=== PATIENT | male | born 1990 | race Caucasian/White ===

== ENCOUNTER 2018-01-08 22:47 | Emergency (ER) | payer MEDICAID ==
[~2018-01-08] VITALS: Ht 170.2 cm; Wt 72.7 kg
[2018-01-08] MEDS ORDERED: KETOROLAC TROMETHAMINE 30 MG/ML VIAL IM ONE (23:15)
[2018-01-08] MEDS ORDERED: METOCLOPRAMIDE HCL 5 MG/ML 2 ML VIAL IM ONE (23:15)
[2018-01-08] MEDS ORDERED: DiphenhydrAMINE HCL 50 MG/ML VIAL IM ONE (23:15)
[2018-01-09 00:22] VITALS: BP 118/64
== END 2018-01-09 00:25 | disposition home or self-care (01) ==
LOC: EMS 22:48
DX: K05.10 Chronic gingivitis, plaque induced (principal); R22.0 Localized swelling, mass and lump, head
CPT/HCPCS: 96372; 99284; J1200; J1885; J2765

== ENCOUNTER 2020-11-16 12:18 | Emergency (ER) | payer MEDICAID ==
[~2020-11-16] VITALS: Ht 172.7 cm; Wt 65.9 kg
[2020-11-16 12:23] VITALS: BP 155/110
== END 2020-11-16 15:00 | disposition left against medical advice (07) ==
LOC: EMS 12:23
DX: I10 Essential (primary) hypertension (principal)
CPT/HCPCS: 93005; 99283

== ENCOUNTER 2021-08-21 02:30 | Emergency (ER) | payer MEDICAID ==
[~2021-08-21] VITALS: Ht 172.7 cm; Wt 72.7 kg
[2021-08-21 02:48] VITALS: BP 156/93
[2021-08-21 03:00] LABS: BASOPHILS % (AUTO) 0.5 % (0.0-2.0); EOSINOPHILS % (AUTO) 0.1 % (1.0-6.0); HEMATOCRIT 43.7 % (41-53); HEMOGLOBIN 14.8 g/dL (13.5-17.5); LYMPHOCYTES # (AUTO) 1.2 K/uL (1.0-4.8); LYMPHOCYTES % (AUTO) 7.5 % (22.0-44.0); MEAN CORPUSCULAR HEMOGLOBIN 30.2 pg (26.0-34.0); MEAN CORPUSCULAR HGB CONC 33.9 G/dL (31.0-37.0); MEAN CORPUSCULAR VOLUME 89 fL (80-100); MONOCYTES # (AUTO) 0.6 K/uL (0.1-1.0); PLATELET COUNT (AUTO) 390 K/uL (150-450); RED BLOOD CELL COUNT(AUTO) 4.92 MIL/uL (4.50-5.90); RED CELL DISTRIBUTION WIDTH 14.2 % (11.5-14.5)
[2021-08-21 03:04] LABS: NEUTROPHILS % (AUTO) 87.9 % (40.0-70.0)
[2021-08-21 03:07] LABS: CALCIUM, TOTAL 9.3 mg/dL (8.8-10.5); CREATININE 1.48 mg/dL (0.60-1.30); POTASSIUM 3.3 mmol/L (3.5-5.1)
[2021-08-21 03:13] LABS: ALBUMIN 4.3 g/dL (3.4-5.0); BILIRUBIN,TOTAL 0.4 mg/dL (0.1-1.0); TOTAL PROTEIN, SERUM 8.7 g/dL (6.4-8.2)
== END 2021-08-21 03:59 ==
LOC: EMS 02:31
DX: Z02.89 Encounter for other administrative examinations (principal)
CPT/HCPCS: 71045; 80053; 85025; 99284; 36415-L1; 36415-TC

== ENCOUNTER 2021-09-15 14:21 | Inpatient (IN) | payer MEDICAID ==
[~2021-09-15] VITALS: Ht 172.7 cm; Wt 73.8 kg
[2021-09-15 15:18] LABS: BASOPHILS % (AUTO) 1.2 % (0.0-2.0); EOSINOPHILS % (AUTO) 5.5 % (1.0-6.0); HEMATOCRIT 40.5 % (41-53); HEMOGLOBIN 13.7 g/dL (13.5-17.5); LYMPHOCYTES # (AUTO) 1.9 K/uL (1.0-4.8); LYMPHOCYTES % (AUTO) 30.6 % (22.0-44.0); MEAN CORPUSCULAR HEMOGLOBIN 30.5 pg (26.0-34.0); MEAN CORPUSCULAR HGB CONC 33.8 G/dL (31.0-37.0); MEAN CORPUSCULAR VOLUME 90 fL (80-100); MONOCYTES # (AUTO) 0.6 K/uL (0.1-1.0); MONOCYTES % (AUTO) 9.7 % (2.0-9.0); NEUTROPHILS # (AUTO) 3.2 K/uL (1.8-7.7); PLATELET COUNT (AUTO) 302 K/uL (150-450); RED BLOOD CELL COUNT(AUTO) 4.48 MIL/uL (4.50-5.90); RED CELL DISTRIBUTION WIDTH 14.2 % (11.5-14.5)
[2021-09-15 15:51] LABS: ANION GAP 6 mmol/L (8-16); CALCIUM, TOTAL 8.8 mg/dL (8.8-10.5); CARBON DIOXIDE 29 mmol/L (22-29); CHLORIDE 104 mmol/L (98-107); CREATININE 0.97 mg/dL (0.60-1.30); GLOMERULAR FILTR. RATE CALC > 60 mL/min (>60); GLUCOSE,RANDOM 85 mg/dL (70-110); POTASSIUM 3.7 mmol/L (3.5-5.1); SODIUM SERUM 139 mmol/L (136-145); UREA NITROGEN, BLOOD 15 mg/dL (7-18)
[2021-09-15 15:57] LABS: ALANINE AMINOTRANSFERASE 29 U/L (12-78); ALBUMIN 3.9 g/dL (3.4-5.0); ALKALINE PHOSPHATASE 63 U/L (46-116); ASPARTATE AMINOTRANSFERASE 19 U/L (15-37); BILIRUBIN,TOTAL 0.4 mg/dL (0.1-1.0); TOTAL PROTEIN, SERUM 7.5 g/dL (6.4-8.2)
[2021-09-15 16:20] LABS: COVID AG,FIA SOURCE NASOPHARYNGEAL
[2021-09-15] MEDS ORDERED: ZOLPIDEM TARTRATE 10 MG TABLET PO PRN (18:30)
[2021-09-16 08:34] VITALS: BP 118/75
[2021-09-16] MEDS ORDERED: NICOTINE 14 MG/24 HOUR PATCH TD PRN (10:30)
[2021-09-16] MEDS ORDERED: MAGNESIUM HYDROXIDE SUSPENSION 30 ML UDCUP PO PRN (10:30)
[2021-09-16] MEDS ORDERED: GuaiFENesin/D-METHORPHAN [SUGAR-FREE] 200-20MG/10 ML SYRUP UDCUP PO PRN (10:30)
[2021-09-16] MEDS ORDERED: ONDANSETRON HCL 4 MG TABLET PO PRN (10:30)
[2021-09-16] MEDS ORDERED: DOCUSATE SODIUM 100 MG CAPSULE PO PRN (10:30)
[2021-09-16] MEDS ORDERED: LOPERAMIDE HCL 2 MG CAPSULE PO PRN (10:30)
[2021-09-16] MEDS ORDERED: CloNIDine HCL 0.1 MG TABLET PO PRN (10:30)
[2021-09-16] MEDS ORDERED: IBUPROFEN 400 MG TABLET PO PRN (10:30)
[2021-09-16] MEDS ORDERED: PETROLATUM,WHITE 28 GM JELLY TP PRN (10:30)
[2021-09-16] MEDS ORDERED: ACETAMINOPHEN 325 MG TABLET PO PRN (10:30)
[2021-09-16] MEDS ORDERED: ALBUTEROL SULFATE HFA 90 MCG/PUFF 8 GM INHALER IH PRN (10:30)
[2021-09-16] MEDS ORDERED: MAG HYDROX/AL HYDROX/SIMETH ES 30 ML SUSPENSION UDCUP PO PRN (10:30)
[2021-09-16 16:12] VITALS: BP 118/77
[2021-09-16] MEDS: ARIPiprazole 10 MG TABLET PO SCH (20:30)
[2021-09-17 08:21] VITALS: BP 122/86
[2021-09-17 17:05] VITALS: BP 108/60
[2021-09-17] MEDS: ARIPiprazole 10 MG TABLET PO SCH (20:22)
[2021-09-18 08:00] VITALS: BP 126/80
[2021-09-18 16:00] VITALS: BP 104/61
[2021-09-18] MEDS: ARIPiprazole 10 MG TABLET PO SCH (20:31)
[2021-09-19 08:20] VITALS: BP 126/79
[2021-09-19] MEDS: HALOPERIDOL 5 MG TABLET PO PRN (15:59)
[2021-09-19] MEDS: LORazepam 2 MG TABLET PO PRN (15:59)
[2021-09-19 17:39] VITALS: BP 110/70
[2021-09-19] MEDS: ARIPiprazole 10 MG TABLET PO SCH (20:37)
[2021-09-20 08:30] VITALS: BP 121/74
[2021-09-20 16:21] VITALS: BP 102/60
[2021-09-20] MEDS: ARIPiprazole 10 MG TABLET PO SCH (20:30)
[2021-09-21 08:21] VITALS: BP 144/65
[2021-09-21 16:48] VITALS: BP 113/66
[2021-09-21] MEDS: ARIPiprazole 10 MG TABLET PO SCH (21:00)
[2021-09-22 06:23] LABS: COVID AG,FIA SOURCE NASAL SWAB
[2021-09-22 08:35] VITALS: BP 139/97
[2021-09-22 16:04] VITALS: BP 123/80
[2021-09-22] MEDS: ARIPiprazole 10 MG TABLET PO SCH (21:00)
[2021-09-23 09:39] VITALS: BP 143/83
[2021-09-23 16:09] VITALS: BP 96/67
[2021-09-23] MEDS: ARIPiprazole 10 MG TABLET PO SCH (20:14)
[2021-09-24] MEDS: HALOPERIDOL 5 MG TABLET PO PRN (14:58)
[2021-09-24] MEDS: LORazepam 2 MG TABLET PO PRN (14:58)
[2021-09-24 16:13] VITALS: BP 99/68
[2021-09-24] MEDS: ARIPiprazole 10 MG TABLET PO SCH (20:39)
[2021-09-25 08:13] VITALS: BP 102/67
[2021-09-25 10:02] LABS: COVID AG,FIA SOURCE NASOPHARYNGEAL
[2021-09-25] MEDS: HALOPERIDOL 5 MG TABLET PO PRN (15:13)
[2021-09-25] MEDS: LORazepam 2 MG TABLET PO PRN (15:13)
[2021-09-25 16:29] VITALS: BP 115/62
[2021-09-25] MEDS: ARIPiprazole 10 MG TABLET PO SCH (20:44)
[2021-09-26 08:20] VITALS: BP 119/74
[2021-09-26] MEDS: LORazepam 2 MG TABLET PO PRN (16:11)
[2021-09-26] MEDS: HALOPERIDOL 5 MG TABLET PO PRN (16:11)
[2021-09-26 16:18] VITALS: BP 140/78
[2021-09-26] MEDS: ARIPiprazole 10 MG TABLET PO SCH (20:14)
[2021-09-27 08:25] VITALS: BP 119/82
[2021-09-27 09:54] LABS: COVID AG,FIA SOURCE NASAL SWAB
[2021-09-27] MEDS: LORazepam 2 MG TABLET PO PRN (10:44)
[2021-09-27] MEDS: HALOPERIDOL 5 MG TABLET PO PRN (10:44)
[2021-09-27 16:11] VITALS: BP 105/78
[2021-09-27] MEDS: ARIPiprazole 10 MG TABLET PO SCH (21:00)
[2021-09-28 08:13] VITALS: BP 145/81
[2021-09-28] MEDS: HALOPERIDOL 5 MG TABLET PO PRN (08:26)
[2021-09-28] MEDS: LORazepam 2 MG TABLET PO PRN (08:26)
[2021-09-28] MEDS: HALOPERIDOL 5 MG TABLET PO SCH ×2 (12:32→16:01)
[2021-09-28 16:26] VITALS: BP 130/85
[2021-09-29] MEDS: HALOPERIDOL 5 MG TABLET PO SCH ×2 (08:16→17:06)
[2021-09-29] MEDS: LORazepam 2 MG TABLET PO PRN ×2 (08:16→17:06)
[2021-09-29 08:26] VITALS: BP 130/87
[2021-09-29 16:33] VITALS: BP 123/82
[2021-09-30] MEDS: HALOPERIDOL 5 MG TABLET PO SCH ×2 (08:19→16:44)
[2021-09-30] MEDS: LORazepam 2 MG TABLET PO PRN ×2 (08:19→16:44)
[2021-09-30 16:26] VITALS: BP 126/78
[2021-10-01 08:26] VITALS: BP 141/85
[2021-10-01] MEDS: HALOPERIDOL 5 MG TABLET PO SCH ×2 (08:38→16:46)
[2021-10-01] MEDS: LORazepam 2 MG TABLET PO PRN ×2 (10:40→16:45)
[2021-10-01] MEDS: HALOPERIDOL 5 MG TABLET PO PRN (10:40)
[2021-10-01 16:16] VITALS: BP 107/58
[2021-10-02] MEDS ORDERED: HALO5TAB2 PO (09:34)
[2021-10-02] MEDS: HALOPERIDOL 5 MG TABLET PO SCH (09:41)
[2021-10-02 10:22] VITALS: BP 138/90
== END 2021-10-02 20:22 | disposition home or self-care (01) | DRG 750 ==
LOC: EMS 14:23 → 3EC 09-16 00:51
PROVIDERS: ADMIT Psychiatry & Neurology Child & Adolescent Psychiatry; ATTEND Psychiatry & Neurology Child & Adolescent Psychiatry
DX: F20.0 Paranoid schizophrenia (principal); R45.851 Suicidal ideations; Z59.00 Homelessness unspecified; F10.10 Alcohol abuse, uncomplicated; F17.200 Nicotine dependence, unspecified, uncomplicated; K27.9 Peptic ulcer, site unspecified, unspecified as acute or chronic, without hemorrhage or perforation; K29.70 Gastritis, unspecified, without bleeding; F32.A Depression, unspecified; Z20.822 Contact with and (suspected) exposure to COVID-19; F41.9 Anxiety disorder, unspecified; Y90.9 Presence of alcohol in blood, level not specified; F19.10 Other psychoactive substance abuse, uncomplicated; Z71.51 Drug abuse counseling and surveillance of drug abuser; Z87.11 Personal history of peptic ulcer disease; Z71.41 Alcohol abuse counseling and surveillance of alcoholic; Z88.9 Allergy status to unspecified drugs, medicaments and biological substances
CPT/HCPCS: 80053; 85025; 99285; G0480; J3535